=== PATIENT | female | born 1960 | race Caucasian/White ===

== ENCOUNTER 2016-08-24 12:06 | Day surgery (SDC) | payer BC ==
[2016-08-22 11:32] VITALS: BMI 29.7
[~2016-08-24 12:06] MED LIST: LACTATED RINGERS 1,000 ML IV SCH
[2016-08-24 12:34] VITALS: TEMP 97.2
[2016-08-24] MEDS ORDERED: LIDOCAINE 1% 20 ML VIAL (10MG/ML) FOR IV START INTRADERMA ONE (12:48)
[2016-08-24] MEDS ORDERED: PROPOFOL 10 MG/ML 20 ML VIAL IV ONE (13:15)
[2016-08-24] MEDS ORDERED: fentaNYL (PF) 50 MCG/ML 2 ML AMP ONE (13:15)
[2016-08-24] MEDS ORDERED: LIDOCAINE 1% INJ 10MG/ML (20 ML MDV) ONE (13:15)
--- NOTE | 2016-08-24 13:52 | P.PCN ---
Date of Procedure: 08/24/16 Procedure(s) Performed: Procedure: Total colonoscopy. Preoperative diagnosis: Screening for neoplasia, patient has history of polyps and family history of colon cancer in her mother. Postoperative diagnosis: Exam within normal limits. Preparation: HalfLytely prep. Sedation: Was provided by anesthesia. Brief clinical history: The patient is a 55-year-old female who is referred for this evaluation for screening for neoplasia age being her risk factor, in addition to history of polyps and family history of colon cancer in her mother. Her last colonoscopy was more than 5 years ago. The patient has no abdominal complaints, bleeding or anemia. Procedure: With the patient on her left lateral decubitus position and after informed consent and adequate sedation, the perianal area was inspected and it did not show any fissures or fistulas. There were no masses felt on digital rectal examination. The Olympus CFQ 160L video colonoscope was then inserted in the rectum in the usual fashion and advanced to the cecum. The mucosa appeared healthy. No polyps or tumors were seen. No obvious diverticular disease was noted. I retroflexed the endoscope in the rectum before the endoscope was withdrawn. The patient tolerated the procedure well. Plan: The patient was reassured. She will follow-up with you as planned and I recommended a repeat exam in 5 years.
[2016-08-24 14:11] VITALS: PULSE 66
[2016-08-24 14:30] VITALS: BP 127/60; RESP 18
== END 2016-08-24 14:44 | disposition home or self-care (01) ==
LOC: ORWHC2ENDO 12:06
DX: Z12.11 Encounter for screening for malignant neoplasm of colon (principal); Z83.71 Family history of colonic polyps; Z80.0 Family history of malignant neoplasm of digestive organs; J45.909 Unspecified asthma, uncomplicated; Z79.899 Other long term (current) drug therapy; Z79.1 Long term (current) use of non-steroidal anti-inflammatories (NSAID); Z79.891 Long term (current) use of opiate analgesic; Z88.5 Allergy status to narcotic agent
CPT/HCPCS: J2001; J3010; J2704; G0105

== ENCOUNTER → 2017-01-15 | Outpatient (CLI) | payer BC ==
--- NOTE | 2017-01-15 14:03 | US ---
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 outside abnormal MRI GLAND SIZE: Right Lobe: 4.6 x 1.2 x 1.4 cm Overall Parenchyma: homogenous Left Lobe: 4.8 x 0.8 x 1.5 cm Overall Parenchyma: homogeneous Isthmus Thickness: 0.2 cm NODULES RIGHT: # of nodules measured on right: 1 1. 0.8 X 0.7 x 1.0 cm echogenic mixed nodule at the mid pole with well-defined margins. This nodul e is wider than tall and shows intranodular vascularity. Prior size: no prior LEFT: # of nodules measured on left: 0 ISTHMUS: # of nodules measured in the isthmus: 0 Bilateral neck scanned, no evidence of lymphadenopathy. Thyroid gland is normal in size and fairly homogeneous in echotexture. There is 1.0 cm mixed nodule u pper to mid pole level right thyroid noted. IMPRESSION: A 1.0 cm mixed nodule right thyroid lobe is confirmed as detailed above.
== END | disposition home or self-care (01) ==
LOC: RADUSWWP 13:26
PROVIDERS: ATTEND Family Medicine
DX: E04.1 Nontoxic single thyroid nodule (principal)
CPT/HCPCS: 76536

== ENCOUNTER → 2017-10-10 | Outpatient (CLI) | payer BC ==
[2017-10-10 17:08] LABS: ALT 47 U/L (9-52); AST 29 U/L (14-36)
== END | disposition home or self-care (01) ==
LOC: LABWHC1 16:30
PROVIDERS: ATTEND Internal Medicine Cardiovascular Disease
DX: I25.10 Atherosclerotic heart disease of native coronary artery without angina pectoris (principal)
CPT/HCPCS: 36415; 84450; 84460

== ENCOUNTER → 2018-01-22 | Outpatient (CLI) | payer BC ==
--- NOTE | 2018-01-22 14:20 | US ---
EXAMINATION TYPE: US thyroid st tissue head/neck DATE OF EXAM: 01/22/2018 COMPARISON: Thyroid ultrasound January 15, 2017 CLINICAL HISTORY: E04.1 Nontoxic single thyroid nodule. GLAND SIZE: Right Lobe: 5.0 x 1.6 x 1.6 cm Overall Parenchyma: homogenous Left Lobe: 5.1 x 1.2 x 1.1 cm Overall Parenchyma: homogeneous Isthmus Thickness: 0.3 cm NODULES RIGHT: # of nodules measured on right: 1 1. 1.3 X 1.2 x 0.8 cm hypoechoic solid nodule at the mid pole with well-defined margins; present wi th microcalcifications. This nodule is and shows intranodular vascularity. Prior size: 0.8 x 0.7 x 1.0 cm LEFT: # of nodules measured on left: 0 ISTHMUS: # of nodules measured in the isthmus: 0 Bilateral neck scanned, no evidence of lymphadenopathy. Multiple tiny cystic areas seen bilaterally as well. Normal-sized thyroid with right-sided spongiform nodule is redemonstrated. No significant change acco unting for technical differences. No new greater than 1 cm nodules are evident. IMPRESSION: Overall stable findings.
== END | disposition home or self-care (01) ==
LOC: RADUSWWP 13:43
PROVIDERS: ATTEND Family Medicine
DX: E04.1 Nontoxic single thyroid nodule (principal)
CPT/HCPCS: 76536

== ENCOUNTER 2022-01-25 09:32 | Day surgery (SDC) | payer MEDICARE ==
[2022-01-23 14:12] VITALS: BMI 30.7
[~2022-01-25 09:32] MED LIST changes: +LIDOCAINE 1% (10MG/ML) FOR IV START INTRADERMA PRN
[2022-01-25 10:02] VITALS: TEMP 98
[2022-01-25 10:16] LABS: Glucose,Whole Blood 91 mg/dL (70-110)
[2022-01-25] MEDS ORDERED: PROPOFOL 10 MG/ML 20 ML VIAL IV ONE (10:16)
--- NOTE | 2022-01-25 10:30 | P.PCN ---
Date of Procedure: 01/25/22 Procedure(s) Performed: BRIEF HISTORY: Patient is a 61-year-old pleasant female scheduled for an elective colonoscopy as a part of screening for colon cancer and family history of colon cancer PROCEDURE PERFORMED: Colonoscopy with biopsy. PREOPERATIVE DIAGNOSIS: Screening for colon cancer and family history of colon cancer IV sedation per Anesthesia. PROCEDURE: After informed consent was obtained, the patient, was brought into the endoscopy unit. IV sedation was administered by Anesthesia under continuous monitoring. Digital rectal examination was normal. Initially the Olympus CF-160 flexible video colonoscope was then inserted in the rectum, gradually advanced into the cecum without any difficulty. Careful examination was performed as the scope was gradually being withdrawn. Ileocecal valve and the appendiceal orifice were visualized and appeared normal. Prep was excellent. Mucosa of the cecum, 3 mm sessile polyp that was removed by cold biopsy. ascending colon, transverse colon, descending colon, sigmoid colon, and rectum appeared normal. Retroflexion was performed in the rectum and no lesions were seen. The patient tolerated the procedure well. IMPRESSION: 3 mm cecal polyp status post cold biopsy Rest of the colon appeared normal Recommendations: Findings of this examination were discussed with the patient as well as a family. She was advised to follow with the biopsy results. Recommend repeat colonoscopy in 5 years now because of family history of colon cancer..
[2022-01-25 10:49] VITALS: RESP 16
[2022-01-25 11:07] VITALS: BP 117/82; PULSE 71
== END 2022-01-25 11:32 | disposition home or self-care (01) ==
LOC: ORWHC2ENDO 09:32
PROVIDERS: ATTEND Internal Medicine Gastroenterology
DX: Z12.11 Encounter for screening for malignant neoplasm of colon (principal); D12.0 Benign neoplasm of cecum; Z80.0 Family history of malignant neoplasm of digestive organs; J45.909 Unspecified asthma, uncomplicated; E07.9 Disorder of thyroid, unspecified; Z88.5 Allergy status to narcotic agent; Z79.82 Long term (current) use of aspirin; Z79.899 Other long term (current) drug therapy; Z91.09 Other allergy status, other than to drugs and biological substances
CPT/HCPCS: 88305; 45380; J2704